=== PATIENT | female | born 1995 | race Caucasian/White ===

== ENCOUNTER 2017-05-28 14:28 | Emergency (ER) | payer BC ==
[~2017-05-28] VITALS: Ht 165.1 cm; Wt 72.6 kg
[2017-05-28] MEDS ORDERED: KEFLEX500 MG PO (15:36)
[2017-05-28] MEDS ORDERED: CLINDAMYCIN HC300 MG PO (16:59)
[2017-05-28] MEDS ORDERED: PSEUDOEPHEDRINE60 MG PO (17:00)
[2017-05-28] MEDS ORDERED: NAPROXEN500 MG PO (17:00)
== END 2017-05-28 17:14 | disposition home or self-care (01) ==
LOC: ED 14:28
DX: J02.0 Streptococcal pharyngitis (principal); R09.81 Nasal congestion; Z88.0 Allergy status to penicillin; Z79.2 Long term (current) use of antibiotics
CPT/HCPCS: 99283; J1100